=== PATIENT | female | born 1945 | race Caucasian/White ===

== ENCOUNTER 2021-02-15 23:08 | Day surgery (SDCO) | payer MEDICARE, OTHER ==
[~2021-02-15 23:08] MED LIST: AMBIEN5 MG PO; ASPIRIN CHEWABL81 MG PO; AZULFIDINE500 M1 PO; CERTAGEN1 EACH PO; CITRACAL + D31 EACH PO; COZAAR50 MG PO; FOLIC ACID1 MG PO; KLOR-CON 1010 MEQ PO; LASIX40 MG PO; NORVASC2.5 MG PO; OSCAL PO; OXYCODONE-ACET1 EAC1 PO; PLAQUENIL200 MG PO; PRESERVISION A1 EAC1 PO; PROMETHAZINE25 MG/ML IVP; RHEUMATREX2.5 MG PO; SYNTHROID25 MCG PO; TOPROL XL100 MG PO; VITAMIN B-121000 MC1 PO; VITAMIN D2400 UNIT PO; XARELTO10 MG PO
[2021-02-16 00:16] LABS: BASOPHIL 0.4 % (0-2); EOSINOPHIL 3.8 % (0-7); HCT 40.9 % (37.0-47.0); HGB 13.5 g/dl (12.5-16.0); LYMPHOCYTE 36.7 % (15-48); MCH 31.5 pg (25.0-31.0); MCV 95.3 fL (78.0-100.0); MONOCYTE 9.9 % (0-12); MPV 9.1 fL (6.0-9.5); NEUTROPHIL 49.1 % (41-80); NRBC 0; PLT 217 K/uL (150-400); RBC 4.29 M/uL (4.20-5.40); RDW 14.6 % (11.5-14.0); WBC 6.8 K/uL (4.0-10.5)
[2021-02-16 00:36] LABS: ALBUMIN 3.3 g/dL (3.4-5.0); BILIRUBIN - TOTAL 0.3 mg/dL (0.2-1.0); BUN/CREAT RATIO (CALC) 24.3 RATIO; CREATININE 0.74 mg/dL (0.51-0.95); FT4 (FREE T4) 1.2 ng/dL (0.76-1.46); GLOBULIN (CALCULATION) 3.7 g/dL; POTASSIUM 3.7 mmol/L (3.5-5.1)
[2021-02-16 03:07] LABS: BILIRUBIN NEGATIVE (NEGATIVE); BLOOD NEGATIVE Ery/uL (NEGATIVE); CLARITY CLEAR (CLEAR); COLOR YELLOW (YELLOW); GLUCOSE (U) NORMAL (NORMAL); LEUKOCYTES TRACE Leu/uL (NEGATIVE); NITRITE NEGATIVE (NEGATIVE); PROTEIN NEGATIVE (NEGATIVE); UROBILINOGEN 0.2 mg/dL (0.2-1.0); pH 5.5 (5.0-9.0)
[2021-02-16 03:16] LABS: BACTERIA TRACE
[2021-02-16 07:31] LABS: MAGNESIUM 2.1 mg/dL (1.8-2.4)
[2021-02-16] MEDS ORDERED: [UNRECOGNIZED DRUG - OTHER] PO (07:45)
[2021-02-16] MEDS ORDERED: TOPROL XL 50 MG50 MG PO (09:12)
[2021-02-16] MEDS ORDERED: TOPROL XL 25MG25 MG PO (09:12)
== END 2021-02-16 12:20 | disposition home or self-care (01) ==
LOC: FER 23:08 → FMS 02-16 05:24
PROVIDERS: Emergency Medicine Emergency Medical Services; Nurse Practitioner; ADMIT Internal Medicine
DX: R00.2 Palpitations (principal); R06.00 Dyspnea, unspecified; I25.10 Atherosclerotic heart disease of native coronary artery without angina pectoris; I10 Essential (primary) hypertension; J44.9 Chronic obstructive pulmonary disease, unspecified; M06.9 Rheumatoid arthritis, unspecified; K21.9 Gastro-esophageal reflux disease without esophagitis; M81.0 Age-related osteoporosis without current pathological fracture; M19.90 Unspecified osteoarthritis, unspecified site; G47.30 Sleep apnea, unspecified; M25.512 Pain in left shoulder; G89.29 Other chronic pain; F32.9 Major depressive disorder, single episode, unspecified; Z96.611 Presence of right artificial shoulder joint; Z20.822 Contact with and (suspected) exposure to COVID-19; Z88.0 Allergy status to penicillin; Z88.1 Allergy status to other antibiotic agents; Z88.7 Allergy status to serum and vaccine; Z96.651 Presence of right artificial knee joint; Z86.79 Personal history of other diseases of the circulatory system; Z86.19 Personal history of other infectious and parasitic diseases; Z87.891 Personal history of nicotine dependence
CPT/HCPCS: 36415; 71045; 71275; 80053; 81001; 83735; 84439; 84443; 84484; 85025; 85379; 93005; G0378; J7040; Q9967; U0002